=== PATIENT | male | born 1935 | race Caucasian/White ===

== ENCOUNTER 2017-12-26 08:43 | Outpatient (CLI) | payer OTHER | END 2017-12-26 14:39 | disposition home or self-care (01) | LOC: LAB 08:43 | DX: I10 Essential (primary) hypertension (principal); E11.9 Type 2 diabetes mellitus without complications; E11.51 Type 2 diabetes mellitus with diabetic peripheral angiopathy without gangrene; E11.42 Type 2 diabetes mellitus with diabetic polyneuropathy; K21.9 Gastro-esophageal reflux disease without esophagitis; K57.30 Diverticulosis of large intestine without perforation or abscess without bleeding; D64.89 Other specified anemias; N39.0 Urinary tract infection, site not specified; N39.8 Other specified disorders of urinary system; G62.89 Other specified polyneuropathies ==

== ENCOUNTER 2018-04-03 10:23 | Outpatient (CLI) | payer OTHER ==
[2018-04-04] MEDS ORDERED: COZAAR25 MG PO (15:44)
[2018-04-04] MEDS ORDERED: CENTRUM MEN'S1 EACH PO (15:44)
[2018-04-04] MEDS ORDERED: GLIPIZIDE XL2.5 MG PO (15:44)
== END 2018-04-03 15:48 | disposition home or self-care (01) ==
LOC: LAB 10:23
DX: I10 Essential (primary) hypertension (principal); E11.9 Type 2 diabetes mellitus without complications; E11.51 Type 2 diabetes mellitus with diabetic peripheral angiopathy without gangrene; E11.42 Type 2 diabetes mellitus with diabetic polyneuropathy; K21.9 Gastro-esophageal reflux disease without esophagitis; G62.9 Polyneuropathy, unspecified; K57.30 Diverticulosis of large intestine without perforation or abscess without bleeding; D64.89 Other specified anemias; N39.0 Urinary tract infection, site not specified

== ENCOUNTER 2018-04-03 15:14 | Outpatient (CLI) | payer OTHER ==
[2018-04-04] MEDS ORDERED: CENTRUM MEN'S1 EACH PO (15:44)
[2018-04-04] MEDS ORDERED: COZAAR25 MG PO (15:44)
[2018-04-04] MEDS ORDERED: GLIPIZIDE XL2.5 MG PO (15:44)
== END 2018-04-03 15:58 | disposition home or self-care (01) ==
LOC: RAD 501 15:14
DX: I10 Essential (primary) hypertension (principal); E11.9 Type 2 diabetes mellitus without complications

== ENCOUNTER → 2018-04-12 | Day surgery (SDC) | payer OTHER ==
[~2018-04-12] MED LIST: CENTRUM MEN'S1 EACH PO; COZAAR25 MG PO; GLIPIZIDE XL2.5 MG PO
== END | disposition home or self-care (01) ==
LOC: CIR.AMB 10:30
DX: N40.1 Benign prostatic hyperplasia with lower urinary tract symptoms (principal); N21.0 Calculus in bladder; N13.8 Other obstructive and reflux uropathy

== ENCOUNTER 2018-05-04 10:15 | Outpatient (CLI) | payer OTHER | END 2018-05-04 10:23 | disposition home or self-care (01) | LOC: LAB 10:15 | DX: N30.00 Acute cystitis without hematuria (principal); R82.79 Other abnormal findings on microbiological examination of urine ==

== ENCOUNTER 2018-05-07 17:53 | Emergency (ER) | payer OTHER ==
[~2018-05-07] VITALS: Ht 180.3 cm; Wt 86.2 kg
== END 2018-05-07 23:10 | disposition home or self-care (01) ==
LOC: ER 17:53
DX: R50.9 Fever, unspecified (principal); N39.0 Urinary tract infection, site not specified

== ENCOUNTER 2018-05-23 16:30 | Emergency (ER) | payer OTHER ==
[~2018-05-23] VITALS: Ht 177.8 cm; Wt 83.9 kg
[2018-05-23] MEDS ORDERED: ZESTRIL2.5 MG (16:49)
[2018-05-23] MEDS ORDERED: TAMS0.4C (16:50)
[2018-05-23] MEDS ORDERED: PROSCAR5 MG (16:50)
== END 2018-05-23 21:36 | disposition home or self-care (01) ==
LOC: ER 16:30
DX: K52.89 Other specified noninfective gastroenteritis and colitis (principal); K57.92 Diverticulitis of intestine, part unspecified, without perforation or abscess without bleeding; R10.31 Right lower quadrant pain

== ENCOUNTER 2018-06-12 10:04 | Outpatient (CLI) | payer OTHER ==
[~2018-06-12 10:04] MED LIST changes: +PROSCAR5 MG; +TAMS0.4C; +ZESTRIL2.5 MG
== END 2018-06-12 10:06 | disposition home or self-care (01) ==
LOC: LAB 10:04
DX: N30.00 Acute cystitis without hematuria (principal); D64.89 Other specified anemias; I10 Essential (primary) hypertension; E11.51 Type 2 diabetes mellitus with diabetic peripheral angiopathy without gangrene; E11.42 Type 2 diabetes mellitus with diabetic polyneuropathy; K21.9 Gastro-esophageal reflux disease without esophagitis; G62.89 Other specified polyneuropathies; K57.30 Diverticulosis of large intestine without perforation or abscess without bleeding; N39.0 Urinary tract infection, site not specified

== ENCOUNTER 2018-09-13 09:54 | Outpatient (CLI) | payer OTHER | END 2018-09-13 10:11 | disposition home or self-care (01) | LOC: LAB 09:54 | DX: I10 Essential (primary) hypertension (principal); E11.51 Type 2 diabetes mellitus with diabetic peripheral angiopathy without gangrene; E11.42 Type 2 diabetes mellitus with diabetic polyneuropathy; K21.9 Gastro-esophageal reflux disease without esophagitis; K57.30 Diverticulosis of large intestine without perforation or abscess without bleeding; D64.89 Other specified anemias; N39.0 Urinary tract infection, site not specified; G62.89 Other specified polyneuropathies ==

== ENCOUNTER 2019-01-15 09:58 | Outpatient (CLI) | payer OTHER | END 2019-01-15 10:10 | disposition home or self-care (01) | LOC: LAB 09:58 | DX: E11.42 Type 2 diabetes mellitus with diabetic polyneuropathy (principal); E11.51 Type 2 diabetes mellitus with diabetic peripheral angiopathy without gangrene; E11.9 Type 2 diabetes mellitus without complications; E78.89 Other lipoprotein metabolism disorders; G62.89 Other specified polyneuropathies; M54.5 Low back pain ==

== ENCOUNTER 2019-01-16 10:33 | Outpatient (CLI) | payer OTHER | END 2019-01-16 15:00 | disposition home or self-care (01) | LOC: LAB 10:33 | DX: E11.42 Type 2 diabetes mellitus with diabetic polyneuropathy (principal); E11.51 Type 2 diabetes mellitus with diabetic peripheral angiopathy without gangrene; E11.9 Type 2 diabetes mellitus without complications; E78.9 Disorder of lipoprotein metabolism, unspecified; G62.89 Other specified polyneuropathies; M54.5 Low back pain ==

== ENCOUNTER 2019-04-17 09:26 | Outpatient (CLI) | payer OTHER | END 2019-04-17 09:29 | disposition home or self-care (01) | LOC: LAB 09:26 | DX: D64.89 Other specified anemias (principal); K57.30 Diverticulosis of large intestine without perforation or abscess without bleeding; E11.42 Type 2 diabetes mellitus with diabetic polyneuropathy; E11.51 Type 2 diabetes mellitus with diabetic peripheral angiopathy without gangrene; E11.9 Type 2 diabetes mellitus without complications; E66.8 Other obesity; K21.9 Gastro-esophageal reflux disease without esophagitis; M15.8 Other polyosteoarthritis; M54.14 Radiculopathy, thoracic region; M89.8X8 Other specified disorders of bone, other site; M54.5 Low back pain; I11.9 Hypertensive heart disease without heart failure ==

== ENCOUNTER 2019-06-28 11:13 | Outpatient (CLI) | payer OTHER | END 2019-06-28 11:16 | disposition home or self-care (01) | LOC: RAD 11:13 | DX: R07.89 Other chest pain (principal) ==

== ENCOUNTER 2019-07-25 09:05 | Outpatient (CLI) | payer OTHER | END 2019-07-25 10:22 | disposition home or self-care (01) | LOC: LAB 09:05 | DX: K57.30 Diverticulosis of large intestine without perforation or abscess without bleeding (principal); D64.89 Other specified anemias; E11.42 Type 2 diabetes mellitus with diabetic polyneuropathy; E11.51 Type 2 diabetes mellitus with diabetic peripheral angiopathy without gangrene; E11.9 Type 2 diabetes mellitus without complications; E66.8 Other obesity; K21.9 Gastro-esophageal reflux disease without esophagitis; M15.8 Other polyosteoarthritis; M54.14 Radiculopathy, thoracic region; M89.8X8 Other specified disorders of bone, other site; M54.5 Low back pain; I11.9 Hypertensive heart disease without heart failure; L81.8 Other specified disorders of pigmentation; E78.89 Other lipoprotein metabolism disorders ==

== ENCOUNTER 2019-11-19 09:58 | Outpatient (CLI) | payer OTHER | END 2019-11-19 14:59 | disposition home or self-care (01) | LOC: LAB 09:58 | DX: K57.30 Diverticulosis of large intestine without perforation or abscess without bleeding (principal); D64.89 Other specified anemias; E11.42 Type 2 diabetes mellitus with diabetic polyneuropathy; E11.51 Type 2 diabetes mellitus with diabetic peripheral angiopathy without gangrene; E66.8 Other obesity; K21.9 Gastro-esophageal reflux disease without esophagitis; M15.8 Other polyosteoarthritis; M54.14 Radiculopathy, thoracic region; M89.8X8 Other specified disorders of bone, other site; M54.5 Low back pain; I11.9 Hypertensive heart disease without heart failure; L81.8 Other specified disorders of pigmentation; L82.1 Other seborrheic keratosis; E78.89 Other lipoprotein metabolism disorders ==

== ENCOUNTER 2019-11-21 12:20 | Outpatient (CLI) | payer OTHER | END 2019-11-21 15:00 | disposition home or self-care (01) | LOC: LAB 12:20 | DX: K57.30 Diverticulosis of large intestine without perforation or abscess without bleeding (principal); D64.89 Other specified anemias; E11.42 Type 2 diabetes mellitus with diabetic polyneuropathy; E11.51 Type 2 diabetes mellitus with diabetic peripheral angiopathy without gangrene; E66.8 Other obesity; K21.9 Gastro-esophageal reflux disease without esophagitis; M15.8 Other polyosteoarthritis; M54.14 Radiculopathy, thoracic region; M89.8X8 Other specified disorders of bone, other site; M54.5 Low back pain; I11.9 Hypertensive heart disease without heart failure; L81.8 Other specified disorders of pigmentation; L82.1 Other seborrheic keratosis; E78.89 Other lipoprotein metabolism disorders; L57.0 Actinic keratosis; H40.019 Open angle with borderline findings, low risk, unspecified eye; E11.319 Type 2 diabetes mellitus with unspecified diabetic retinopathy without macular edema; E11.3291 Type 2 diabetes mellitus with mild nonproliferative diabetic retinopathy without macular edema, right eye; Z12.11 Encounter for screening for malignant neoplasm of colon; R97.20 Elevated prostate specific antigen [PSA]; E11.3319 Type 2 diabetes mellitus with moderate nonproliferative diabetic retinopathy with macular edema, unspecified eye ==

== ENCOUNTER 2019-11-22 10:14 | Outpatient (CLI) | payer OTHER | END 2019-11-22 15:00 | disposition home or self-care (01) | LOC: LAB 10:14 | DX: K57.30 Diverticulosis of large intestine without perforation or abscess without bleeding (principal); D64.89 Other specified anemias; E11.42 Type 2 diabetes mellitus with diabetic polyneuropathy; E11.51 Type 2 diabetes mellitus with diabetic peripheral angiopathy without gangrene; E66.8 Other obesity; K21.9 Gastro-esophageal reflux disease without esophagitis; M15.8 Other polyosteoarthritis; M54.14 Radiculopathy, thoracic region; M89.8X8 Other specified disorders of bone, other site; M54.5 Low back pain; I11.9 Hypertensive heart disease without heart failure; L81.8 Other specified disorders of pigmentation; L82.1 Other seborrheic keratosis; E78.89 Other lipoprotein metabolism disorders; H40.019 Open angle with borderline findings, low risk, unspecified eye; L57.0 Actinic keratosis; Z12.11 Encounter for screening for malignant neoplasm of colon; R97.20 Elevated prostate specific antigen [PSA]; E11.3311 Type 2 diabetes mellitus with moderate nonproliferative diabetic retinopathy with macular edema, right eye ==

== ENCOUNTER 2020-05-07 09:34 | Outpatient (CLI) | payer OTHER | END 2020-05-07 09:42 | disposition home or self-care (01) | LOC: LAB 09:34 | PROVIDERS: ATTEND Ophthalmology | DX: D68.8 Other specified coagulation defects (principal); H25.89 Other age-related cataract ==

== ENCOUNTER → 2021-12-15 09:52 | Outpatient (CLI) | payer OTHER | END | disposition home or self-care (01) | LOC: LAB 09:52 | PROVIDERS: ATTEND Internal Medicine | DX: E11.319 Type 2 diabetes mellitus with unspecified diabetic retinopathy without macular edema (principal); E11.3291 Type 2 diabetes mellitus with mild nonproliferative diabetic retinopathy without macular edema, right eye; E11.36 Type 2 diabetes mellitus with diabetic cataract; L81.9 Disorder of pigmentation, unspecified; N39.9 Disorder of urinary system, unspecified; M54.50 Low back pain, unspecified; M89.9 Disorder of bone, unspecified; I10 Essential (primary) hypertension; E11.42 Type 2 diabetes mellitus with diabetic polyneuropathy; E11.51 Type 2 diabetes mellitus with diabetic peripheral angiopathy without gangrene; E66.8 Other obesity; E78.9 Disorder of lipoprotein metabolism, unspecified; G62.9 Polyneuropathy, unspecified; E55.9 Vitamin D deficiency, unspecified; Z12.11 Encounter for screening for malignant neoplasm of colon ==

== ENCOUNTER → 2022-04-12 09:17 | Outpatient (CLI) | payer OTHER | END | disposition home or self-care (01) | LOC: LAB 09:17 | PROVIDERS: ATTEND Internal Medicine | DX: E11.319 Type 2 diabetes mellitus with unspecified diabetic retinopathy without macular edema (principal); E11.3291 Type 2 diabetes mellitus with mild nonproliferative diabetic retinopathy without macular edema, right eye; E11.36 Type 2 diabetes mellitus with diabetic cataract; L81.9 Disorder of pigmentation, unspecified; N39.9 Disorder of urinary system, unspecified; M54.50 Low back pain, unspecified; M89.9 Disorder of bone, unspecified; I10 Essential (primary) hypertension; E11.42 Type 2 diabetes mellitus with diabetic polyneuropathy; E11.51 Type 2 diabetes mellitus with diabetic peripheral angiopathy without gangrene; E66.8 Other obesity; E78.9 Disorder of lipoprotein metabolism, unspecified; G62.9 Polyneuropathy, unspecified; E55.9 Vitamin D deficiency, unspecified ==

== ENCOUNTER 2022-06-21 14:26 | Outpatient (CLI) | payer OTHER | END 2022-06-21 14:47 | disposition home or self-care (01) | LOC: LAB 14:26 | DX: Z11.52 Encounter for screening for COVID-19 (principal); Z20.822 Contact with and (suspected) exposure to COVID-19 ==

== ENCOUNTER 2022-07-26 10:07 | Outpatient (CLI) | payer OTHER | END 2022-07-26 10:09 | disposition home or self-care (01) | LOC: LAB 10:07 | PROVIDERS: ATTEND Internal Medicine | DX: E11.319 Type 2 diabetes mellitus with unspecified diabetic retinopathy without macular edema (principal); E11.3291 Type 2 diabetes mellitus with mild nonproliferative diabetic retinopathy without macular edema, right eye; E11.36 Type 2 diabetes mellitus with diabetic cataract; L81.9 Disorder of pigmentation, unspecified; N39.9 Disorder of urinary system, unspecified; M54.59 Other low back pain; M89.9 Disorder of bone, unspecified; I10 Essential (primary) hypertension; E11.42 Type 2 diabetes mellitus with diabetic polyneuropathy; E11.51 Type 2 diabetes mellitus with diabetic peripheral angiopathy without gangrene; E11.9 Type 2 diabetes mellitus without complications; E66.8 Other obesity; G62.9 Polyneuropathy, unspecified; E55.9 Vitamin D deficiency, unspecified ==

== ENCOUNTER 2022-09-23 08:58 | Outpatient (CLI) | payer OTHER | END 2022-09-23 08:59 | disposition home or self-care (01) | LOC: LAB 08:58 | PROVIDERS: ATTEND Internal Medicine | DX: E11.319 Type 2 diabetes mellitus with unspecified diabetic retinopathy without macular edema (principal); E11.3291 Type 2 diabetes mellitus with mild nonproliferative diabetic retinopathy without macular edema, right eye; E11.36 Type 2 diabetes mellitus with diabetic cataract; L81.9 Disorder of pigmentation, unspecified; N39.9 Disorder of urinary system, unspecified; M54.50 Low back pain, unspecified; M89.9 Disorder of bone, unspecified; I10 Essential (primary) hypertension; E11.42 Type 2 diabetes mellitus with diabetic polyneuropathy; E11.51 Type 2 diabetes mellitus with diabetic peripheral angiopathy without gangrene; E11.9 Type 2 diabetes mellitus without complications; E66.8 Other obesity; E78.9 Disorder of lipoprotein metabolism, unspecified; G62.9 Polyneuropathy, unspecified; E55.9 Vitamin D deficiency, unspecified ==

== ENCOUNTER 2022-11-11 14:00 | Outpatient (CLI) | payer OTHER | END 2022-11-11 14:11 | disposition home or self-care (01) | LOC: SONOGRAMA 14:00 | PROVIDERS: ATTEND Urology | DX: R97.20 Elevated prostate specific antigen [PSA] (principal); R10.84 Generalized abdominal pain; N20.0 Calculus of kidney; N20.1 Calculus of ureter ==

== ENCOUNTER 2022-11-15 09:37 | Outpatient (CLI) | payer OTHER | END 2022-11-15 09:41 | disposition home or self-care (01) | LOC: LAB 09:37 | PROVIDERS: ATTEND Urology | DX: N20.1 Calculus of ureter (principal) ==

== ENCOUNTER 2022-12-06 15:28 | Outpatient (CLI) | payer OTHER | END 2022-12-06 15:36 | disposition home or self-care (01) | LOC: LAB 15:28 | PROVIDERS: ATTEND Urology | DX: C67.9 Malignant neoplasm of bladder, unspecified (principal); D68.8 Other specified coagulation defects; I10 Essential (primary) hypertension ==

== ENCOUNTER → 2022-12-09 12:18 | Outpatient (CLI) | payer OTHER | END | disposition home or self-care (01) | LOC: LAB 12:18 | PROVIDERS: ATTEND Urology | DX: N30.00 Acute cystitis without hematuria (principal) ==

== ENCOUNTER 2022-12-10 17:47 | Emergency (ER) | payer OTHER ==
[~2022-12-10] VITALS: Ht 180.3 cm; Wt 86.2 kg
[2022-12-10] MEDS ORDERED: LEVOFLOXACIN750 MG (18:07)
[2022-12-10] MEDS ORDERED: PHENAZOPYRIDIN200 MG (18:08)
[2022-12-10] MEDS ORDERED: TAMS0.4C PO (20:56)
== END 2022-12-10 21:03 | disposition home or self-care (01) ==
LOC: ER 17:47
DX: T83.84XA Pain due to genitourinary prosthetic devices, implants and grafts, initial encounter (principal); N39.0 Urinary tract infection, site not specified; R30.0 Dysuria; B96.20 Unspecified Escherichia coli [E. coli] as the cause of diseases classified elsewhere

== ENCOUNTER 2022-12-22 09:25 | Outpatient (CLI) | payer OTHER ==
[~2022-12-22 09:25] MED LIST changes: +LEVOFLOXACIN750 MG; +PHENAZOPYRIDIN200 MG; +TAMS0.4C PO
== END 2022-12-22 15:35 | disposition home or self-care (01) ==
LOC: LAB 09:25
PROVIDERS: ATTEND Urology
DX: N30.00 Acute cystitis without hematuria (principal)

== ENCOUNTER 2023-01-19 05:00 | Day surgery (SDC) | payer OTHER | END 2023-01-19 13:30 | disposition home or self-care (01) | LOC: CIR.AMB 05:00 → ADM 09:30 → CIR.AMB 09:30 | PROVIDERS: ATTEND Urology | DX: C67.9 Malignant neoplasm of bladder, unspecified (principal); Z20.822 Contact with and (suspected) exposure to COVID-19; R97.20 Elevated prostate specific antigen [PSA]; I10 Essential (primary) hypertension; E78.49 Other hyperlipidemia; Z87.891 Personal history of nicotine dependence; E11.9 Type 2 diabetes mellitus without complications; Z79.84 Long term (current) use of oral hypoglycemic drugs ==

== ENCOUNTER 2023-02-12 07:55 | Outpatient (CLI) | payer OTHER | END 2023-02-12 08:00 | disposition home or self-care (01) | LOC: LAB 07:55 | PROVIDERS: ATTEND Internal Medicine | DX: E11.319 Type 2 diabetes mellitus with unspecified diabetic retinopathy without macular edema (principal); E11.3291 Type 2 diabetes mellitus with mild nonproliferative diabetic retinopathy without macular edema, right eye; E11.36 Type 2 diabetes mellitus with diabetic cataract; L81.9 Disorder of pigmentation, unspecified; N39.9 Disorder of urinary system, unspecified; M54.59 Other low back pain; M89.9 Disorder of bone, unspecified; I10 Essential (primary) hypertension; E11.42 Type 2 diabetes mellitus with diabetic polyneuropathy; E11.51 Type 2 diabetes mellitus with diabetic peripheral angiopathy without gangrene; E66.8 Other obesity; E78.9 Disorder of lipoprotein metabolism, unspecified; G92.9 Unspecified toxic encephalopathy; E55.9 Vitamin D deficiency, unspecified; N20.0 Calculus of kidney; N20.1 Calculus of ureter; Z12.11 Encounter for screening for malignant neoplasm of colon ==

== ENCOUNTER 2023-03-07 09:34 | Outpatient (CLI) | payer OTHER | END 2023-03-07 09:36 | disposition home or self-care (01) | LOC: LAB 09:34 | PROVIDERS: ATTEND Urology | DX: C67.9 Malignant neoplasm of bladder, unspecified (principal) ==

== ENCOUNTER 2023-03-14 10:43 | Outpatient (CLI) | payer OTHER | END 2023-03-14 10:44 | disposition home or self-care (01) | LOC: LAB 10:43 | PROVIDERS: ATTEND Urology | DX: N39.0 Urinary tract infection, site not specified (principal) ==

== ENCOUNTER 2023-03-29 11:02 | Outpatient (CLI) | payer OTHER | END 2023-03-29 11:05 | disposition home or self-care (01) | LOC: LAB 11:02 | PROVIDERS: ATTEND Urology | DX: N39.0 Urinary tract infection, site not specified (principal) ==

== ENCOUNTER 2023-05-23 11:56 | Outpatient (CLI) | payer OTHER | END 2023-05-23 11:57 | disposition home or self-care (01) | LOC: LAB 11:56 | PROVIDERS: ATTEND Internal Medicine | DX: E11.319 Type 2 diabetes mellitus with unspecified diabetic retinopathy without macular edema (principal); E11.3291 Type 2 diabetes mellitus with mild nonproliferative diabetic retinopathy without macular edema, right eye; E11.36 Type 2 diabetes mellitus with diabetic cataract; H26.491 Other secondary cataract, right eye; K82.9 Disease of gallbladder, unspecified; N32.9 Bladder disorder, unspecified; C67.9 Malignant neoplasm of bladder, unspecified; C23 Malignant neoplasm of gallbladder ==

== ENCOUNTER 2023-06-28 09:25 | Outpatient (CLI) | payer OTHER | END 2023-06-28 09:27 | disposition home or self-care (01) | LOC: LAB 09:25 | PROVIDERS: ATTEND Urology | DX: N39.0 Urinary tract infection, site not specified (principal) ==

== ENCOUNTER 2023-07-13 09:43 | Outpatient (CLI) | payer OTHER | END 2023-07-13 09:44 | disposition home or self-care (01) | LOC: LAB 09:43 | PROVIDERS: ATTEND Urology | DX: N39.0 Urinary tract infection, site not specified (principal) ==

== ENCOUNTER → 2023-08-30 09:23 | Outpatient (CLI) | payer OTHER ==
[2023-08-30 09:51] LABS: HEMATOCRIT 46.2 % (39.0-48.0); HEMOGLOBIN 15.6 g/dL (13-16.00); MEAN CELL VOLUME 87.2 fL (80.0-100.00); MEAN CORPUSCULAR HEMOGLOBIN 29.5 pg (27.00-32.0); MEAN CORPUSCULAR HGB CONC 33.8 g/dl (32.0-36.0); PLATELET COUNT 217 K/uL (150-450); RED CELL DISTRIBUTION WIDTH 14.5 % (11.5-14.5)
[2023-08-30 09:52] LABS: URINE APPEARANCE Clear; URINE BILIRRUBIN Negative (NEGATIVE); URINE BLOOD Negative; URINE COLOR Yellow; URINE GLUCOSE Negative (NEGATIVE); URINE LEUKOCYTE Trace; URINE NITRATE Negative; URINE PROTEIN Trace (NEGATIVE)
[2023-08-30 09:54] LABS: URINE EPITHELIAL CELLS 13.5 uL (0.0-38.8); URINE WBC 28.7 uL (0.0-23.2)
[2023-08-30 10:55] LABS: ALBUMIN 3.7 gm/dL (3.4-5.0); BILIRUBIN TOTAL 0.83 mg/dL (0.3-1.2); CREATININE SERUM 1.19 mg/dL (0.70-1.30); GFR 57.56; GLOBULINA 3.4 G/DL (2.4-3.5); PHOSPHOROUS 3.3 mg/dL (2.5-4.9); POTASSIUM 4.61 mEq/L (3.5-5.1); TOTAL PROTEIN 7.1 gm/dL (6.4-8.2)
== END | disposition home or self-care (01) ==
LOC: LAB 09:23
PROVIDERS: ATTEND Internal Medicine
DX: H26.491 Other secondary cataract, right eye (principal); E11.319 Type 2 diabetes mellitus with unspecified diabetic retinopathy without macular edema; E11.3291 Type 2 diabetes mellitus with mild nonproliferative diabetic retinopathy without macular edema, right eye; E11.36 Type 2 diabetes mellitus with diabetic cataract; K82.9 Disease of gallbladder, unspecified; N32.9 Bladder disorder, unspecified; C67.9 Malignant neoplasm of bladder, unspecified

== ENCOUNTER 2023-12-05 10:25 | Outpatient (CLI) | payer OTHER ==
[2023-12-05 11:08] LABS: URINE APPEARANCE Clear; URINE BACTERIA 7.5 uL (0.0-1933); URINE BILIRRUBIN Negative (NEGATIVE); URINE BLOOD Negative; URINE COLOR Yellow; URINE EPITHELIAL CELLS 2.4 uL (0.0-38.8); URINE GLUCOSE Negative (NEGATIVE); URINE LEUKOCYTE Negative; URINE NITRATE Negative; URINE PROTEIN Negative (NEGATIVE); URINE UROBILINOGEN 0.2 E.U./dl; URINE WBC 4.9 uL (0.0-23.2)
[2023-12-05 11:10] LABS: URINE RBC 1.1 uL (0.0-20.8)
[2023-12-05 11:15] LABS: HEMATOCRIT 45.1 % (39.0-48.0); HEMOGLOBIN 15.5 g/dL (13-16.00); MEAN CELL VOLUME 86.2 fL (80.0-100.00); MEAN CORPUSCULAR HEMOGLOBIN 29.5 pg (27.00-32.0); MEAN CORPUSCULAR HGB CONC 34.3 g/dl (32.0-36.0); PLATELET COUNT 235 K/uL (150-450); RED BLOOD COUNT 5.24 M/uL (4.00-6.00); RED CELL DISTRIBUTION WIDTH 14.4 % (11.5-14.5)
[2023-12-05 12:06] LABS: ALBUMIN 3.8 gm/dL (3.4-5.0); BILIRUBIN TOTAL 0.76 mg/dL (0.3-1.2); CALCIUM 9.2 mg/dL (8.5-10.1); CHOL HDL RATIO 1.9 (0-5.0); CREATININE SERUM 1.09 mg/dL (0.70-1.30); GFR 63.7; GLOBULINA 3.1 G/DL (2.4-3.5); POTASSIUM 4.69 mEq/L (3.5-5.1); TOTAL PROTEIN 6.9 gm/dL (6.4-8.2)
== END 2023-12-05 10:26 | disposition home or self-care (01) ==
LOC: LAB 10:25
PROVIDERS: ATTEND Internal Medicine
DX: H26.491 Other secondary cataract, right eye (principal); E11.319 Type 2 diabetes mellitus with unspecified diabetic retinopathy without macular edema; E11.3291 Type 2 diabetes mellitus with mild nonproliferative diabetic retinopathy without macular edema, right eye; E11.36 Type 2 diabetes mellitus with diabetic cataract; K82.9 Disease of gallbladder, unspecified; N32.9 Bladder disorder, unspecified; C67.9 Malignant neoplasm of bladder, unspecified; C23 Malignant neoplasm of gallbladder

== ENCOUNTER 2023-12-06 07:34 | Outpatient (CLI) | payer OTHER ==
[2023-12-06 10:16] LABS: ob NEGATIVE (NEGATIVE)
== END 2023-12-06 07:35 | disposition home or self-care (01) ==
LOC: LAB 07:34
PROVIDERS: ATTEND Internal Medicine
DX: E11.319 Type 2 diabetes mellitus with unspecified diabetic retinopathy without macular edema (principal); H26.491 Other secondary cataract, right eye; E11.3291 Type 2 diabetes mellitus with mild nonproliferative diabetic retinopathy without macular edema, right eye; K82.9 Disease of gallbladder, unspecified; N32.9 Bladder disorder, unspecified; C67.9 Malignant neoplasm of bladder, unspecified; C23 Malignant neoplasm of gallbladder

== ENCOUNTER 2024-01-23 12:32 | Outpatient (CLI) | payer OTHER | END 2024-01-23 12:33 | disposition home or self-care (01) | LOC: LAB 12:32 | PROVIDERS: ATTEND Urology | DX: N39.0 Urinary tract infection, site not specified (principal) ==